=== PATIENT | female | born 1965 | race African-American/Black ===

== ENCOUNTER 2018-05-21 17:57 | Emergency (ER) | payer OTHER ==
[~2018-05-21] VITALS: Ht 160 cm; Wt 80.3 kg
[2018-05-21 18:36] LABS: URINE BILIRUBIN NEGATIVE (Negative); URINE BLOOD 2+ (Negative); URINE CLARITY CLEAR; URINE COLOR YELLOW; URINE GLUCOSE-RANDOM NEGATIVE (Negative); URINE KETONES NEGATIVE (Negative); URINE NITRITE-REFLEX NEGATIVE (Negative); URINE PROTEIN 1+ (Negative); URINE SPECIFIC GRAVITY 1.025 (1.005-1.030); URINE UROBILINOGEN 0.2 E.U./dl (0.2-1.0)
[2018-05-21 18:38] LABS: URINE LEUKOCYTES-REFLEX 3+ (Negative)
[2018-05-21 18:47] LABS: MUCUS 4-6 Moderate strn/LPF (None Seen); SQUAMOUS >10 Many /LPF (0-3); URINE WBC-REFLEX >25 Many /HPF (0-5)
[2018-05-21 18:48] LABS: BACTERIA-REFLEX 1-9 Few /HPF (None Seen); CASTS None Seen /LPF (None Seen); CRYSTALS None Seen /LPF (None Seen); URINE RBC 3-10 Few /HPF (0-2)
[2018-05-21 18:49] LABS: ABSOLUTE BASOPHILS 0.1 thou/uL (0.0-0.2); ABSOLUTE EOSINOPHILS 0.3 thou/uL (0.0-0.7); ABSOLUTE LYMPHOCYTES 2.6 thou/uL (0.8-5.3); ABSOLUTE MONOCYTES 0.5 thou/uL (0.0-1.2); ABSOLUTE NEUTROPHILS 2.1 thou/uL (1.6-8.1); BASOPHILS 1.5 %; EOSINOPHILS 4.6 %; HEMATOCRIT 38.6 % (37.0-47.0); HEMOGLOBIN 12.4 gm/dL (12.0-15.0); LYMPHOCYTES 46.7 %; MCH 26.5 pg (26.0-34.0); MCHC 32.2 g/dL (28.0-37.0); MCV 82.2 fL (80.0-100.0); MONOCYTES 8.9 %; MPV 8.4 fl. (7.2-11.1); NUCLEATED RBCS 0 /100WBC; PLATELET COUNT* 275 thou/uL (150-400); POLYS 38.3 %; RBC 4.69 mil/uL (4.20-5.00); RDW-CV 16.3 % (10.5-14.5); WBC 5.6 thou/uL (4.0-11.0)
[2018-05-21 18:53] LABS: ANION GAP 3 mmol/L (7-16); BUN 7 mg/dL (7-18); CALCIUM 8.8 mg/dL (8.5-10.1); CHLORIDE 104 mmol/L (98-107); CO2 31 mmol/L (21-32); CREATININE 0.8 mg/dL (0.6-1.3); GLUCOSE 79 mg/dL (70-99); POTASSIUM 3.4 mmol/L (3.5-5.1); SODIUM 138 mmol/L (136-145)
[2018-05-21 18:57] LABS: APTT 27.5 Seconds (25.0-31.3); INR 0.9; PROTIME 9.7 Seconds (9.20-11.50)
[2018-05-21 19:00] LABS: ALBUMIN 3.5 g/dL (3.4-5.0); ALKALINE PHOSPHATASE 78 U/L (46-116); LIPASE 350 U/L (73-393); SGOT 37 U/L (15-37); SGPT 50 U/L (30-65); TOTAL BILIRUBIN 0.3 mg/dL (<0.1-1.0); TROPONIN-I LEVEL <0.06 ng/mL (<0.06)
[2018-05-21 20:03] LABS: AMP/METHAMP Negative (Negative); BARBITURATES Negative (Negative); BENZODIAZEPINES Negative (Negative); COCAINE Negative (Negative); METHADONE Negative (Negative); OPIATES Negative (Negative); PCP Negative (Negative); THC Negative (Negative)
[2018-05-21] MEDS ORDERED: KEFLEX500 M1 PO (20:21)
[2018-05-21 20:30] VITALS: BP 196/75
--- NOTE | 2018-05-22 11:14 | EKG ---
[place] [address] ELECTROCARDIOGRAM REPORT Name: GONZALEZ HELLER 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
== END 2018-05-21 20:30 | disposition home or self-care (01) ==
LOC: EDBD 17:57 → M.ERS 17:57
PROVIDERS: Family Medicine; Personal Emergency Response Attendant
DX: N39.0 Urinary tract infection, site not specified (principal)